=== PATIENT | female | born 1955 ===

== ENCOUNTER 2017-07-06 22:42 | Emergency (ER) | payer MEDICAID ==
[~2017-07-06] VITALS: Ht 160 cm; Wt 68.0 kg
[2017-07-06 22:47] VITALS: Ht 160 cm; Wt 68.0 kg
[2017-07-07] MEDS ORDERED: SOD CHLORIDE 0.9% 1,000 ML IV ONE (00:30)
[2017-07-07 00:34] LABS: URINE BLOOD (Dip) POC Negative (NEGATIVE)
[2017-07-07 00:49] LABS: ABNORMAL IP MESSAGE 1; BASOPHIL # 0.1 10^3/ul (0.0-0.1); BASOPHILS % 0.9 % (0.0-2.0); EOSINOPHILS # 0.5 10^3/ul (0.0-0.5); EOSINOPHILS % 4.6 % (0.0-7.0); HEMATOCRIT 31.2 % (37.0-47.0); HEMOGLOBIN 10.4 g/dl (12.0-16.0); LYMPHOCYTES # 5.1 10^3/ul (0.8-2.9); MEAN CORPUSCULAR HEMOGLOBIN 29.2 pg (29.0-33.0); MEAN CORPUSCULAR HGB CONC 33.3 g/dl (32.0-37.0); MEAN CORPUSCULAR VOLUME 87.6 fl (82.0-101.0); MEAN PLATELET VOLUME 9.6 fl (7.4-10.4); MONOCYTE # 0.8 10^3/ul (0.3-0.9); MONOCYTES % 7.9 % (0.0-11.0); NEUTROPHIL # 3.7 10^3/ul (1.6-7.5); NEUTROPHILS % 36.3 % (39.0-77.0); PLATELET COUNT 273 10^3/UL (140-415); RED BLOOD COUNT 3.56 10^6/ul (4.20-5.40); RED CELL DISTRIBUTION WIDTH 13.2 % (11.5-14.5); WHITE BLOOD COUNT 10.2 10^3/ul (4.8-10.8)
[2017-07-07 00:50] LABS: ADD UMIC NO; UR ASCORBIC ACID NEGATIVE (NEGATIVE); UR BILIRUBIN (Dip) NEGATIVE (NEGATIVE); UR BLOOD (Dip) NEGATIVE (NEGATIVE); UR CLARITY CLEAR (CLEAR); UR COLOR STRAW (YELLOW); UR GLUCOSE (Dip) NEGATIVE (NEGATIVE); UR KETONES (Dip) NEGATIVE (NEGATIVE); UR LEUKOCYTE ESTERASE (Dip) NEGATIVE Leu/ul (NEGATIVE); UR NITRITE (Dip) NEGATIVE (NEGATIVE); UR SPECIFIC GRAVITY (Dip) 1.005 (1.003-1.030); UR TOTAL PROTEIN (Dip) NEGATIVE (NEGATIVE); UR UROBILINOGEN (Dip) NEGATIVE (NEGATIVE)
[2017-07-07 00:59] LABS: POSITIVE DIFF @See below
[2017-07-07 01:07] LABS: POTASSIUM 4.5 mmol/L (3.5-5.1)
[2017-07-07 01:08] LABS: ALBUMIN 4.1 g/dl (3.3-4.9); ALBUMIN/GLOBULIN RATIO 1.2; CALCIUM 9.4 mg/dl (8.4-10.2); CREATININE 1.9 mg/dl (0.44-1.00); TOTAL PROTEIN 7.5 g/dl (6.1-8.1)
[2017-07-07 01:20] LABS: INR 0.98
[2017-07-07 01:21] LABS: PARTIAL THROMBOPLASTIN TIME 29.4 Sec (25.0-35.0)
[2017-07-07] MEDS ORDERED: morphine 10 MG INJ IV ONE (01:30)
--- NOTE | 2017-07-07 01:47 | RADRPT ---
PROCEDURE: CT Abdomen and Pelvis without contrast. CLINICAL INDICATION: Abdominal pain, unable to urinate. TECHNIQUE: A CT scan of the abdomen and pelvis was performed without intravenous contrast. Montague l and sagittal reformatted images were generated. Images were reviewed on a high-resolution PACS wor kstation. CTDIvol: 11.40 mGy. DLP: 630.52 mGy-cm. One or more of the following dose reduction techniques were used: - Automated exposure control. - Adjustment of the mA and/or kV according to patient size. - Use of iterative reconstruction technique. COMPARISON: None. FINDINGS: The lung bases are clear. Evaluation of the abdominal and pelvic viscera is limited by the lack of oral and intravenous contra st. The liver is unremarkable. There are stones in the gallbladder. The common bile duct is not dilated . The spleen is not enlarged. No pancreatic lesion is identified and there is no pancreatic ductal d ilatation. The adrenal glands are unremarkable. The kidneys are normal in size. There is mild symmetric perinephric fat stranding, probably age-rela yodit. No hydronephrosis is seen. No urinary stone is identified. The small and large bowel are normal in caliber. There is no bowel wall thickening. There is modera te to severe sigmoid colon diverticulosis. The patient is status post appendectomy. There is a Guerrero catheter in place within the urinary bladder. The pelvic organs are within normal limits. No lymphadenopathy is identified. There is no ascites. No pneumoperitoneum is seen. There are mild t o moderate arterial calcifications. No suspicious osseous lesion is idenitified. IMPRESSION: 1. No inflammation, mass, or lymphadenopathy. 2. No obstructive uropathy or urinary stone. 3. Guerrero catheter in place within the urinary bladder. 4. Status post appendectomy. 5. Moderate to severe sigmoid colon diverticulosis. 6. Mild atherosclerotic arterial calcifications. 7. Mild to moderate arterial calcifications. RPTAT: HTAR .Edwin Lujan MD, Date Time Electronically viewed and signed by .Edwin Lujan MD, MD on 07/07/2017 01:47 .R/
[2017-07-07] MEDS ORDERED: MAGN296S40 PO (02:45)
[2017-07-07] MEDS ORDERED: HYDR-902 PO (02:45)
[2017-07-07] MEDS ORDERED: POLY17PO6 PO (02:45)
[2017-07-07] MEDS ORDERED: NAPR-688 PO (02:45)
[2017-07-07] MEDS ORDERED: KETOROLAC 30 MG INJ IV STA (02:47)
[2017-07-07 03:12] VITALS: BP 142/65; PULSE 68; RESP 20; TEMP 98.3
--- NOTE | 2017-07-07 03:27 | ERD ---
ER Documentation Chief Complaint Date/Time DATE: 07/07/17 TIME: 03:01 Chief Complaint dysuria today, pelvic pain HPI This 62-year-old female presents to the emergency room for lower abdominal pain described as sharp. She states that she has not been able to urinate for 4 hours. Denies nausea and vomiting. Admits that she may be constipated. Says that she has had problems in the kidneys before. ROS All systems reviewed and are negative except as per history of present illness. Medications Home Meds Active Scripts Magnesium Citrate* (Magnesium Citrate*) 296 Ml Solution, 296 ML PO ONCE, #1 BOTTLE Prov:WELLINGTON COLEMAN DO 07/07/17 Polyethylene Glycol* (Miralax*) 17 Gm Powd.pack, 17 GM PO DAILY for CONSTIPATION , #7 PACKET Prov:WELLINGTON COLEMAN DO 07/07/17 Naproxen* (Naproxen*) 500 Mg Tablet, 500 MG PO BID Y for PAIN, #20 TAB Prov:WELLINGTON COLEMAN DO 07/07/17 Hydrocodone/Acetaminophen ([place] 10-325 Tablet) 1 Each Tablet, 1 EACH PO Q6, # 14 TAB Prov:WELLINGTON COLEMAN DO 07/07/17 Allergies Allergies: Coded Allergies: No Known Allergy (Unverified , 07/06/17) PMhx/Soc Hx Cardiac Disorders: Yes (high cholesterol, htn) Hx Alcohol Use: No Hx Substance Use: No Hx Tobacco Use: No Smoking Status: Never smoker Physical Exam Vitals Vital Signs Date Time Temp Pulse Resp B/P Pulse Ox O2 Delivery O2 Flow Rate FiO2 07/06/17 22:47 98.3 77 20 177/77 99 Physical Exam Const: [] Mild distress Head: Atraumatic Eyes: Normal Conjunctiva ENT: Normal External Ears, Nose and Mouth. Neck: Full range of motion..~ No meningismus. Resp: Clear to auscultation bilaterally Cardio: Regular rate and rhythm, no murmurs Abd: Soft, Mild lower abdominal tenderness below the umbilicus with Small approximately 4 cm deeper palpable mass towards the left side. No guarding or rebound, non distended. Normal bowel sounds Skin: No petechiae or rashes Back: No midline or flank tenderness Ext: No cyanosis, or edema Neur: Awake and alert and oriented 3, no focal deficits Psych: Normal Mood and Affect Result Diagram: 07/07/17 0036 07/07/17 0036 Results 24 hrs Laboratory Tests Test 07/07/17 00:25 07/07/17 00:36 07/07/17 00:41 Urine Color STRAW Urine Clarity CLEAR Urine pH 5.0 Urine Specific [place] 1.005 Urine Ketones NEGATIVEmg/dL Urine Nitrite NEGATIVEmg/dL Urine Bilirubin NEGATIVEmg/dL Urine Urobilinogen NEGATIVEmg/dL Urine Leukocyte Esterase NEGATIVELeu/ul Urine Hemoglobin NEGATIVEmg/dL Urine Glucose NEGATIVEmg/dL Urine Total Protein NEGATIVEmg/dl White Blood Count 10.210^3/ul Red Blood Count 3.5610^6/ul Hemoglobin 10.4g/dl Hematocrit 31.2% Mean Corpuscular Volume 87.6fl Mean Corpuscular Hemoglobin 29.2pg Mean Corpuscular Hemoglobin Concent 33.3g/dl Red Cell Distribution Width 13.2% Platelet Count 84507^3/UL Mean Platelet Volume 9.6fl Neutrophils % 36.3% Lymphocytes % 50.0% Monocytes % 7.9% Eosinophils % 4.6% Basophils % 0.9% Nucleated Red Blood Cells % 0.0/100WBC Neutrophils # 3.710^3/ul Lymphocytes # 5.110^3/ul Monocytes # 0.810^3/ul Eosinophils # 0.510^3/ul Basophils # 0.110^3/ul Nucleated Red Blood Cells # 0.010^3/ul Prothrombin Time 13.0Sec Prothrombin Time Ratio 1.0 INR International Normalized Ratio 0.98 Activated Partial Thromboplast Time 29.4Sec Sodium Level 133mmol/L Potassium Level 4.5mmol/L Chloride Level 100mmol/L Carbon Dioxide Level 25mmol/L Anion Gap 13 Blood Urea Nitrogen 30mg/dl Creatinine 1.90mg/dl Glucose Level 117mg/dl Calcium Level 9.4mg/dl Total Bilirubin 0.0mg/dl Direct Bilirubin 0.00mg/dl Indirect Bilirubin 0.0mg/dl Aspartate Amino Transf (AST/SGOT) 20IU/L Alanine Aminotransferase (ALT/SGPT) 27IU/L Alkaline Phosphatase 114IU/L Total Protein 7.5g/dl Albumin 4.1g/dl Globulin 3.40g/dl Albumin/Globulin Ratio 1.20 Lipase 459U/L Bedside Urine pH (LAB) 5.5 Bedside Urine Protein (LAB) Negative Bedside Urine Glucose (UA) Negative Bedside Urine Ketones (LAB) Negative Bedside Urine Blood Negative Bedside Urine Nitrite (LAB) Negative Bedside Urine Leukocyte Esterase (L Negative Current Medications Medications (Trade) Dose Ordered Sig/Kendall Route PRN Reason Start Time Stop Time Status Last Admin Dose Admin Sodium Chloride (NS) 1,000 ml @ 1,000 mls/hr Q1H ONCE IV 07/07/17 00:30 07/07/17 01:29 DC 07/07/17 00:05 Morphine Sulfate (morphine) 6 mg ONCE ONCE IV 07/07/17 01:30 07/07/17 01:31 DC 07/07/17 01:33 Ketorolac Tromethamine (Toradol) 30 mg ONCE STAT IV 07/07/17 02:47 07/07/17 02:47 DC Procedures/MDM 62-year-old female with lower abdominal pain, retained stool and renal insufficiency. She was given morphine in the emergency room for which she was feeling better. Did mention that she had a history of kidney problems. She was given a liter of normal saline. Moderate to severe diverticulosis on the CAT scan. Mild stool retention. She is feeling better and has no acute surgical emergency. I told her that she should definitely see her primary care doctor and have printed her laboratories and her CAT scan to give to her. I am going to discharge her with [place], naproxen, MiraLAX, magnesium citrate. Instructed her to drink plenty of water for her kidneys and for her constipation. Her pain may have been secondary to combination of diverticulosis and constipation. No signs of urinary tract infection. Guerrero was placed and the patient only had 120 mL which may be consistent with only having urinary retention for 4 hours. She has no back pain or saddle anesthesia to suggest cauda equina syndrome.Told to return emergency room if she has any trouble taking in fluids for any continued pain. CT abdomen pelvis interpretation: I see moderate stool retention throughout colon, see no free air, no abnormal fat stranding, no fractures. Radiologist also mentions moderate to severe diverticulosis without diverticulitis. Departure Diagnosis: Primary Impression: Acute abdominal pain Additional Impressions: Diverticulosis Constipation Renal insufficiency Condition: Stable Patient Instructions: Abdominal Pain, Constipation (Adult), Diverticulosis Referrals: [facility] YOU HAVE RECEIVED A MEDICAL SCREENING EXAM AND THE RESULTS INDICATE THAT YOU DO NOT HAVE A CONDITION THAT REQUIRES URGENT TREATMENT IN THE EMERGENCY DEPARTMENT. FURTHER EVALUATION AND TREATMENT OF YOUR CONDITION CAN WAIT UNTIL YOU ARE SEEN IN YOUR DOCTORS OFFICE WITHIN THE NEXT 1-2 DAYS. IT IS YOUR RESPONSIBILITY TO MAKE AN APPOINTMENT FOR FOLOW-UP CARE. IF YOU HAVE A PRIMARY DOCTOR --you should call your primary doctor and schedule an appointment IF YOU DO NOT HAVE A PRIMARY DOCTOR YOU CAN CALL OUR PHYSICIAN REFERRAL HOTLINE AT IF YOU CAN NOT AFFORD TO SEE A PHYSICIAN YOU CAN CHOSE FROM THE FOLLOWING [facility] [id number] [facility] [address] [facility] [facility] [address] [facility] [address] [facility] [address] [facility]. [facility]. [address] Additional Instructions: Llame al doctor MAANA y carmen brianna ALFREDO PARA DENTRO DE 1-2 LOOMIS.Dgale a la secretaria que nosotros le instruimos hacer esta alfredo.Avise o llame si mcgrath condicin se empeora antes de la alfredo. Regresa aqui si peor o no mejor. WELLINGTON COLEMAN DO Jul 07, 2017 03:11
[2017-07-07] MEDS ORDERED: DEXTROSE 50% 50 ML SYRINGE ONE (15:44)
== END 2017-07-07 03:16 | disposition home or self-care (01) ==
LOC: FTE 22:42
DX: K57.30 Diverticulosis of large intestine without perforation or abscess without bleeding (principal); K59.00 Constipation, unspecified; N28.9 Disorder of kidney and ureter, unspecified; I10 Essential (primary) hypertension
CPT/HCPCS: 36415; 74176; 80053; 81003; 83690; 85025; 85610; 85730; 96374; J2270; J7030; Z7502; Z7610